=== PATIENT | female | born 1955 | race Caucasian/White ===

== ENCOUNTER 2019-08-07 05:42 | Inpatient (IN) | payer BC ==
[2019-08-07 07:05] VITALS: BMI 33.6
[2019-08-07] MEDS ORDERED: PROPOFOL 20 ML ONE (07:12)
[2019-08-07] MEDS ORDERED: ROCURONIUM BROMIDE 50 MG/5 ML SYRINGE ONE (07:12)
[2019-08-07] MEDS ORDERED: KETAMINE HCL 200 MG/20 ML VIAL ONE (07:12)
[2019-08-07] MEDS ORDERED: ONDANSETRON 4 MG/2 ML VIAL ONE (07:15)
[2019-08-07] MEDS ORDERED: SODIUM CHLORIDE 0.9% P/F 10 ML VIAL IJ ONE (07:15)
[2019-08-07] MEDS ORDERED: DEXAMETHASONE SOD PHOSPHATE 4 MG/1 ML VIAL ONE (07:15)
[2019-08-07] MEDS ORDERED: MAGNESIUM SULF 50% (8.12 MEQ/2 ML-1 GM VIAL) ONE (07:15)
[2019-08-07] MEDS ORDERED: KETOROLAC TROMETHAMINE 30 MG/1 ML VIAL ONE (07:15)
[2019-08-07] MEDS ORDERED: LIDOCAINE HCL/PF 2% SDV 5ML VIAL ONE ×2 (07:15→07:24)
[2019-08-07] MEDS ORDERED: ceFAZolin SODIUM 1 GM VIAL ONE ×2 (07:15→12:33)
[2019-08-07] MEDS ORDERED: EPINEPHrine/PF 1 MG/1 ML (1:1,000) AMPULE ONE (07:25)
[2019-08-07] MEDS ORDERED: BUPIVACAINE HCL/PF 0.5% (5 MG/ML) 30 ML VIAL IJ ONE (07:39)
[2019-08-07] MEDS ORDERED: MIDAZOLAM HCL 2 MG/2 ML SINGLE DOSE VIAL ONE (07:39)
[2019-08-07] MEDS ORDERED: BUPIVACAINE LIPOSOME/PF (EXPAREL) 266 MG/20 ML VIAL ONE ×2 (07:39→07:48)
[2019-08-07] MEDS ORDERED: BUPIVACAINE HCL/PF 2.5 MG/ML - 30 ML VIAL IJ ONE (07:49)
[2019-08-07] MEDS ORDERED: BACITRACIN 15 GM TUBE TOPICAL OINTMENT ONE (07:49)
[2019-08-07] MEDS ORDERED: BUPIVACAINE HCL 0.25% 125 MG/50 ML VIAL ONE (07:49)
[2019-08-07] MEDS ORDERED: HEPARIN NA (PORCINE) 5,000 UNITS/ML 1ML VIAL ONE (08:42)
[2019-08-07] MEDS ORDERED: METOPROLOL TARTRATE 5 MG/5 ML VIAL ONE (09:18)
[2019-08-07] MEDS: ACETAMINOPHEN 1000 MG/100 ML VIAL (NON FORMULARY) IVPB PRN (10:00)
[2019-08-07] MEDS ORDERED: EPHEDRINE SULFATE/0.9% NACL/PF 50 MG/10 ML SYRINGE NR ONE ×2 (10:16→11:40)
[2019-08-07] MEDS ORDERED: VECURONIUM BROMIDE 10 MG VIAL ONE (11:03)
[2019-08-07] MEDS ORDERED: NEOSTIGMINE METHYLSULFATE 0.5 MG/ML - 10 ML MDV ONE (14:59)
[2019-08-07] MEDS ORDERED: GLYCOPYRROLATE 0.2 MG/1 ML VIAL ONE (15:00)
--- NOTE | 2019-08-07 15:27 | OP ---
DATE OF OPERATION: 08/07/2019 PREOPERATIVE DIAGNOSIS: Complex, chronically incarcerated, large ventral incisional hernia. POSTOPERATIVE DIAGNOSIS: Complex, chronically incarcerated, large ventral incisional hernia. PROCEDURE: Open bilateral component separation, repair of complex, chronically incarcerated ventral incisional hernia, partial omentectomy, bilateral rectus sheath block (given by 1st wellness assistant). SURGEON: Joshua Knutson MD WORK FROM HOME: Kwan Hansen DO ANESTHESIA: Michelle Plummer MD (general). ESTIMATED BLOOD LOSS: Minimal. SPECIMEN: Portion of omentum. INDICATION FOR PROCEDURE: This is a 64-year-old female who has had multiple abdominal surgeries and now presented with a very large, chronically incarcerated, complex, ventral incisional hernia. She is here for operative repair since it has gotten larger and causing her discomfort. Please refer to my history and physical for complete details. DESCRIPTION OF PROCEDURE: Patient was identified and appropriately positioned on the operating room table. After placement of general anesthesia, the abdomen was then prepped and draped in the usual sterile fashion with ChloraPrep. At this point, Dr. Holland performed the exposure portion of the operation for his abdominoplasty. Please refer to his dictation. Once exposure was obtained, the defect clearly identified, and the hernia sac incised, and the abdomen was entered. Upon entering the abdomen, it was a slider and contained omentum. The omentum that was stuck to the sac was serially clamped, divided, and tied, and portion of the omentum with the sac was excised and handed off as specimen. There were adhesions of omentum and small bowel to the anterior abdominal wall. These adhesions were taken down with blunt dissection to free up the undersurface of the abdomen. The defect itself was between 9-10 cm in its widest dimension. Given the size of this defect, the patient clearly needed a component separation. The right rectus posterior rectus sheath was identified, divided with the cautery. The right posterior rectus space was then subsequently entered. Using blunt dissection, the rectus muscle itself was off the posterior sheath. Due to her previous surgery, there were some areas that were scarred, and in those sections, the rectus muscle was divided with the cautery as needed. Next, the perforating vessels were identified going out laterally, and just medial to the perforating vessels, the fascia of the transversus was divided with the cautery and the transversus off the junction of the rectus and obliques. This myofascial separation ensued approximately 5 inches above and below the defect. Superiorly, it was taken to the level of the costal margin. This blunt dissection was taken out and out toward the anterior iliac spine laterally. Once the myofascial separation was completed on the right side, a similar approach was used on the left side. On the left side, the posterior rectus space was entered by dividing the posterior rectus sheath with the cautery. The space was then subsequently developed with blunt dissection and in doing so again the muscle that was scarred from her previous surgery was divided as needed and the perforating vessels identified and preserved. The fascia just medial to the perforating vessels were then subsequently scored, and the transversus was off the obliques and rectus junction with this maneuver, and the myofascial separation ensued approximately 5 inches above and below the defect and superiorly was taken to the costal margin also on the left. The plane was developed out laterally toward the anterior iliac spine. Once the posterior rectus space was developed, the transversus was then reapproximated in the midline with a running 2-0 V-Lock suture. Once the posterior rectus space was closed, the rectus sheath itself was injected by the 1st wellness assistant using a total of 40 mL of Exparel with 4 mg of Decadron. This was done under direct vision on both sides, 20 mL each side. The defect measured, and due to the generosity of the defect and the space developed in the retrorectus location, a large 50 x 50 piece of Versatex with a 16 x 20 OviTex was used for the operative repair. The Versatex was cut to the appropriate size. The 2 pieces of mesh were sewn together in a hybrid fashion with interrupted 3-0 Vicryl sutures. The OviTex was laid on the transversus side, and the Versatex was directly behind the rectus muscle side. The mesh placed into the rectorectus location and then anchored with a multitude of AbsorbaTack anchors. The mesh was then irrigated. The operative field noted to be hemostatic. The fascia in the midline then reapproximated with a running No. 1 PDS suture. At the level of the umbilicus, the umbilicus was spared. At this point, Dr. Holland had returned to complete the abdominoplasty. I was asked to return to the operating room because during the completion of the abdominoplasty, Dr. Holland decided to remove the umbilicus, and in doing so, he encountered the sac at the level of the umbilicus. Once the umbilicus was removed, the fascia around where the umbilicus used to be was then reapproximated with interrupted No. 1 PDS suture. The subcutaneous space irrigated once again. The operative field noted to be hemostatic. At this point, the repair was completed. Please refer to Dr. Holland's dictation for completion of abdominoplasty and liposuction. Raj KOHLI [id number] cc: MD Dr. Chelsie Sanders MD
[2019-08-07] MEDS ORDERED: MORPHINE SULFATE 2 MG/ML VIAL IVPUSH PRN (15:31)
[2019-08-07] MEDS ORDERED: oxyCODONE HCL 5 MG TABLET PO PRN (15:31)
[2019-08-07] MEDS ORDERED: ONDANSETRON 4 MG/2 ML VIAL IVPB PRN (15:31)
[2019-08-07] MEDS ORDERED: ACETAMINOPHEN INJECTION 100 ML IVPB ONE (16:44)
--- NOTE | 2019-08-07 17:18 | OP ---
Operative Note - Note: Operative Date: 08/07/19 Pre-Operative Diagnosis: abdominal deformity Operation: abdominoplasty with liposuction Findings: above Post-Operative Diagnosis: Same as Pre-op Surgeon: Charlie Holland Anesthesia: General
--- NOTE | 2019-08-07 17:19 | PN ---
Progress Note (short form) - Note Progress Note: post op check: VSS AF JED thin and functioning, NV in tact
--- NOTE | 2019-08-07 18:30 | OP ---
DATE OF OPERATION: 08/07/2019 PROCEDURE: Abdominoplasty with liposuction to midepigastrium and flanks. ATTENDING SURGEON: Charlie Holland MD The procedure is performed in combination with a large ventral incisional hernia repair by Dr. Joshua Knutson. That portion of the procedure will be dictated by Joshua Knutson and his team. DESCRIPTION OF PROCEDURE: The patient is marked in the standing position in the holding area. She is awake and aware of incisions and resulting scars. She is counseled thoroughly on all risks, benefits, and alternatives to the procedure. It is discussed with the patient that she will likely lose the umbilicus as part of the procedure, which she understands and agrees to. The markings were reviewed with Dr. Knutson. Patient is then brought to the operating room. Placed in a supine position. She is positioned by surgical and anesthesia teams, 5000 units of subcutaneous heparin are given. The patient is given 2 g of Ancef. She is prepped and draped in a standard sterile fashion. Pacheco catheter is placed prior to the procedure. Pillow is placed below the knees. All proper positioning aids and pads are used. A time-out is called. Patient, procedure, site, sides are verified. At this point, an incision is made at the infrapannicular crease where dissection is then carried down to the level of the abdominal wall fascia. Dissection is carried along the abdominal wall fascia to the level of the umbilicus in the midline, which is preserved on a large fibrofatty stalk. Dissection is then continued cephalad to the costal margins bilaterally and xiphoid process in the midline. Hemostasis is meticulously achieved. All the perforating vessels that needed to be divided are carefully divided and either Bovie or suture ligated. The operation is then turned over to Dr. Knutson who along with Dr. Hansen performed the repair of the ventral incisional hernia. At the completion of this, I am called back into the operating room to complete the abdominoplasty. Initially, the viability of the umbilicus is access by trimming the edges of the skin with a 10-blade scalpel. No dermal bleeding is able to be seen in several locations. On account of this, it is determined that the umbilicus was not viable, which was the preoperative expectation. The umbilicus is then amputated at its base. Dr. Hansen is called back into the OR to repair the base defect with a series of interrupted No. 1 Prolene sutures on top of the existing mesh and repair. At the completion of this, hemostasis was meticulously achieved. A midline plication is then performed. It is explained by Dr. Hansen that the pre-existing repair and separation of components allowed for a plication on the inferior half of the abdomen, which explained the increased relative tension on the inferior half of the abdomen. A series of sutures is performed along the midline both in the upper and lower abdomen to create an even tension throughout the entire abdomen. This was done 1st with a series of buried No. 1 Prolene figure of eight sutures followed by a running, locking No. 1 Prolene suture with knots buried. With the plication, there is significant bunching and fullness of the upper abdominal tissue and skin requiring midepigastric liposuction and discontinuous undermining of the flaps over the costal margins. On account of this, the superior flap is then infiltrated with wetting solution as well as the bilateral flanks. A total of 1200 mL of wetting solution is infiltrated between all these areas, and 30 minutes is given for the effect of the wetting solution in order to allow for hemostasis. While this is being performed, the patient is brought to a slightly flexed position at 30 degrees where the abdominoplasty flap is transposed, and excess skin and fat are removed. Hemostasis is achieved. Excellent dermal bleeding is seen at the suprapubic skin distalmost portion of the flap. Discontinuous undermining is then laterally on the abdominoplasty flap with a ring forceps as well as an exploded tip cannula without suction. Liposuction is performed in the midepigastrium with a 4-mm cannula. Traditional liposuction is used. A total of 200 is aspirated. The flanks are then liposuctioned, and a total of 100 mL from either flank is aspirated. Once again, hemostasis is thoroughly achieved. Copious irrigation is performed. Closure is then performed over 3 size 10 flat J-P drains, which are brought out through 2 lateral incisions as well as a suprapubic incision that is made in an existing C section scar. Drains are secured with 2-0 silk drain suture. Closure is performed of Meron layer superficial fascial system with a series of buried, interrupted 2-0 Vicryl suture followed by a series of interrupted, buried, deep dermal 3-0 Monocryl suture followed by a running middermal 3-0 V-Lock suture 90 day Monocryl. The skin edges are then approximated with interrupted 5-0 nylon suture where necessary. All tissues appear viable. Drains were placed to bulb suction. Steri-Strips are applied. ABD gauze and an abdominal binder are applied. It should be noted as part of the midepigastric liposuction 2 inframammary stab wounds were made, 1 on either side. These are closed with interrupted 5-0 nylon suture. Patient is transferred to a hospital bed in a flexed position. Binder is applied. She is transferred to recovery without complication. CHARLIE HOLLAND M.D. [id number]
[2019-08-07] MEDS ORDERED: HYDROmorphone HCL 0.5 MG/0.5 ML SYRINGE ONE (18:37)
[2019-08-07] MEDS ORDERED: HYDROmorphone HCL CARPU-JECT 1 MG/1 ML DISP.SYRIN IVPB ONE (20:17)
[2019-08-07] MEDS ORDERED: HYDROmorphone HCL CARPU-JECT 1 MG/1 ML DISP.SYRIN IVPB PRN (20:21)
[2019-08-07] MEDS: CEFAZOLIN 1 GM/D5W 1 GM/50 ML BAG IVPB SCH (21:54)
[2019-08-07] MEDS: LACTATED RINGERS SOLUTION 1,000 ML IV SCH (22:31)
[2019-08-07] MEDS ORDERED: KETOROLAC TROMETHAMINE 30 MG/1 ML VIAL IVPUSH PRN (23:10)
[2019-08-08] MEDS: ACETAMINOPHEN 1000 MG/100 ML VIAL (NON FORMULARY) IVPB PRN ×3 (01:07→22:00)
[2019-08-08] MEDS: HYDROmorphone HCl 2 MG/ML VIAL IVPB PRN ×2 (02:00→06:08)
[2019-08-08] MEDS: CEFAZOLIN 1 GM/D5W 1 GM/50 ML BAG IVPB SCH (03:31)
[2019-08-08] MEDS: traMADol HCL 50 MG TABLET PO PRN (05:06)
[2019-08-08] MEDS: LEVOTHYROXINE NA 100 MCG TABLET (FP) PO SCH (06:10)
[2019-08-08] MEDS ORDERED: FAMOTIDINE 20 MG/50 ML IVPB 20 MG/50 ML MG IVPB ONE (08:35)
[2019-08-08] MEDS: HEPARIN NA (PORCINE) 5,000 UNITS/ML 1ML VIAL SQ SCH ×2 (08:48→10:22)
--- NOTE | 2019-08-08 08:48 | ED.PROV ---
Physicial Exam I saw and examined the patient. - Vital Signs Last Vital Signs Temp Pulse Resp BP Pulse Ox 98.4 F 61 18 107/51 L 95 08/08/19 06:23 08/08/19 06:23 08/08/19 06:23 08/08/19 06:23 08/07/19 23:00 - Physical Exam Reason for Response: 08/08/19 08:41 gen itching and swelling of hands since early am today no difficulty breathing or swallowing. no throat irritation. no wheezing. nl vitals. ent clear. chest clear. hx allergy morphine with similar sxs plan hold Dilaudid and Ancef as possible allergens Benadryl and pepcid now contact dr barron for further theraputic options may consider iv acetamenaphen or fentanyl, though cross reaction with morphine likely, and different antibiotic close obs
[2019-08-08] MEDS ORDERED: LACTATED RINGERS SOLUTION 1,000 ML/1,000 ML INFUS.BAG IV STA (09:41)
--- NOTE | 2019-08-08 09:49 | PN ---
Progress Note (short form) - Note Progress Note: POD 1 Patient VSS AF OOB to chair with me this morning No collections or infections All tissues viable JED's thin serosanguinous fluid and all with appropriate output UOP adequate, [place] d/c'd CLD tolerated Patient with significant anxiety- ativan PRN c/o "burning to chest skin" nurses say there was a rash which has resolved with benedryl and pepcid abx changed to levaquin increase pain meds with toradol, IV tylenol, and dilaudid Continue encourage IS, ambulation.
[2019-08-08] MEDS ORDERED: [UNRECOGNIZED DRUG - MIXTURE] PO SCH ×2 (10:00→12:30)
[2019-08-08] MEDS ORDERED: PATIENT'S OWN MEDICATION (NON-FORMULARY) (Losartan/Hydrochlorothiazide [Losartan-Hctz 100- PO SCH (10:00)
[2019-08-08] MEDS: HYDROmorphone HCl 2 MG/ML VIAL IVPUSH PRN ×3 (10:15→20:04)
[2019-08-08] MEDS: CYANOCOBALAMIN 1,000 MCG TABLET (FP) PO SCH ×2 (10:21→12:27)
[2019-08-08] MEDS: HYDROCHLOROTHIAZIDE 25 MG TABLET (FP) PO SCH ×2 (10:22→12:27)
[2019-08-08] MEDS: ASCORBIC ACID 500 MG TABLET (FP) PO SCH ×2 (10:22→12:28)
[2019-08-08] MEDS: LOSARTAN POTASSIUM 50 MG TABLET (FP) PO SCH ×2 (10:22→12:27)
[2019-08-08] MEDS: CHOLECALCIFEROL (VIT D3) 1,000 UNIT (25 MCG) TABLET PO SCH ×2 (10:23→12:32)
[2019-08-08] MEDS: LORazepam 2 MG/ML SDV VIAL IVPUSH PRN ×2 (10:25→18:51)
[2019-08-08] MEDS: DOCUSATE SODIUM 100 MG CAPSULE (FP) PO SCH ×3 (10:25→21:17)
[2019-08-08] MEDS: LACTATED RINGERS SOLUTION 1,000 ML IV SCH ×2 (16:15→18:19)
[2019-08-08 16:54] LABS: HEMATOCRIT 31.4 % (32.4-45.2); HEMOGLOBIN 10.9 GM/dl (10.7-15.3); MCH 32.3 pg (25.7-33.7); MCHC 34.9 g/dl (32.0-36.0); MEAN CELL VOLUME 92.4 fl (80-96); MEAN PLT VOLUME 8.8 fl (7.5-11.1); PLATELET COUNT 173 K/MM3 (134-434); RBC 3.39 M/mm3 (3.60-5.2); RDW 12.6 % (11.6-15.6); WHITE BLOOD COUNT 17.7 K/mm3 (4.0-10.8)
[2019-08-08] MEDS ORDERED: SODIUM CHLORIDE 1,000 ML IV ONE (18:00)
[2019-08-08 18:38] LABS: PLATELET ESTIMATE ADEQUATE
--- NOTE | 2019-08-08 20:42 | PN ---
Progress Note (short form) - Note Progress Note: Called to see patient on account of high JED drainage Patient is slightly tachycardic though normotensive and highly anxious Color is pink JED output is very thin serosanguinous fluid, abdominal exam is soft with clearly no hematoma HCT is 31.4 24 hours post-op Plan for continued IVF, will restart CLD and OOB Hold sq heparin until after next cbc draw in AM
[2019-08-09] MEDS: HYDROmorphone HCl 2 MG/ML VIAL IVPUSH PRN ×4 (00:09→21:50)
[2019-08-09] MEDS: traMADol HCL 50 MG TABLET PO PRN ×2 (02:05→16:21)
[2019-08-09] MEDS: LORazepam 2 MG/ML SDV VIAL IVPUSH PRN (04:11)
[2019-08-09] MEDS: LEVOTHYROXINE NA 100 MCG TABLET (FP) PO SCH (06:19)
[2019-08-09 08:04] LABS: HEMATOCRIT 28.9 % (32.4-45.2); MCH 32.1 pg (25.7-33.7); MCHC 34.7 g/dl (32.0-36.0); MEAN CELL VOLUME 92.5 fl (80-96); MEAN PLT VOLUME 9.2 fl (7.5-11.1); PLATELET COUNT 211 K/MM3 (134-434); RBC 3.13 M/mm3 (3.60-5.2); RDW 12.5 % (11.6-15.6); WHITE BLOOD COUNT 19.7 K/mm3 (4.0-10.8)
[2019-08-09] MEDS: ASCORBIC ACID 500 MG TABLET (FP) PO SCH (10:12)
[2019-08-09] MEDS: CYANOCOBALAMIN 1,000 MCG TABLET (FP) PO SCH (10:13)
[2019-08-09] MEDS: CHOLECALCIFEROL (VIT D3) 1,000 UNIT (25 MCG) TABLET PO SCH (10:13)
[2019-08-09] MEDS: DOCUSATE SODIUM 100 MG CAPSULE (FP) PO SCH ×2 (10:13→21:22)
[2019-08-09] MEDS: LOSARTAN POTASSIUM 50 MG TABLET (FP) PO SCH (11:28)
[2019-08-09] MEDS: HYDROCHLOROTHIAZIDE 25 MG TABLET (FP) PO SCH (11:28)
[2019-08-09] MEDS ORDERED: SODIUM CHLORIDE 0.45% 1,000 ML IV SCH (11:45)
--- NOTE | 2019-08-09 13:21 | PN ---
Progress Note (short form) - Note Progress Note: general surgery pt seen and examined. in chair. using 1000 on spirometer. mild tachycardia. on O2. dvt study negative. tolerating minimal clear liquids. cxr with atelectasis afebrile abd soft, incision clean with serous drainage, love serous, mild edema, minimal tenderness A/P Pod#1- tachycardia with O2 requirement. likely from atelectasis. will ambulate and improve incentive spirometer. after 1 hour will get abg. if suspicious will get CTA to r/o PE. would like to avoid constrast load if low suspicion. dvt negative. pt states she feels well will restart sq hep as no active bleed. hgb stable leukocytosis likely reactive. should improve tomorrow. doubt infection. doubt PE. on prophylactic levaquin. Selected Entries 08/09/19 08:44 Pulse Rate 109 H Laboratory Tests 08/09/19 07:19 WBC 19.7 H Hgb 10.0 L
[2019-08-09] MEDS: HEPARIN NA (PORCINE) 5,000 UNITS/ML 1ML VIAL SQ SCH ×2 (13:43→21:28)
[2019-08-09] MEDS: PROMETHAZINE HCL 25 MG/1 ML VIAL IVPB PRN (13:44)
[2019-08-09] MEDS: ONDANSETRON *ODT* 4 MG TABLET SL PRN ×2 (14:00→23:58)
[2019-08-09 15:56] LABS: ARTERIAL BLD GAS O2 SATURATION 97.9 % (95-98); ARTERIAL BLOOD GAS pH 7.48 (7.35-7.45)
[2019-08-09] MEDS: LACTATED RINGERS SOLUTION 1,000 ML IV SCH (21:44)
[2019-08-10] MEDS: ACETAMINOPHEN 1000 MG/100 ML VIAL (NON FORMULARY) IVPB PRN (01:28)
[2019-08-10] MEDS ORDERED: FAMOTIDINE 10 MG TABLET PO SCH ×2 (02:00→10:00)
[2019-08-10] MEDS: HYDROmorphone HCl 2 MG/ML VIAL IVPUSH PRN ×3 (04:35→17:35)
[2019-08-10] MEDS: LEVOTHYROXINE NA 100 MCG TABLET (FP) PO SCH (06:01)
[2019-08-10] MEDS ORDERED: ONDANSETRON 8 MG TABLET (FP) PO PRN (08:40)
--- NOTE | 2019-08-10 09:20 | PN ---
Progress Note (short form) - Note Progress Note: POD 3 VSS AF Much improved over last 2 days All drainage is thin serous fluid Dressings are changed Patient is ambulating and improving with incentive spirometer. Her SaO2 ranges b/w high 80's to low 90's but improves when walking and using IS duplex neg for DVT. CXR sig only for bilateral atelectasis Pain is well controlled on PO Plan is for ambulation today with weaning off supplemental O2. If this is not successful will order CTA tomorrow, otherwise plan for d/c home tomorrow.
[2019-08-10] MEDS: DOCUSATE SODIUM 100 MG CAPSULE (FP) PO SCH ×2 (10:43→21:11)
[2019-08-10] MEDS: LOSARTAN POTASSIUM 50 MG TABLET (FP) PO SCH (10:43)
[2019-08-10] MEDS: HEPARIN NA (PORCINE) 5,000 UNITS/ML 1ML VIAL SQ SCH ×2 (10:43→21:12)
[2019-08-10] MEDS: HYDROCHLOROTHIAZIDE 25 MG TABLET (FP) PO SCH (10:43)
[2019-08-10] MEDS: PROMETHAZINE HCL 25 MG/1 ML VIAL IVPB PRN ×2 (10:44→20:28)
[2019-08-10] MEDS: CYANOCOBALAMIN 1,000 MCG TABLET (FP) PO SCH (10:44)
[2019-08-10] MEDS: CHOLECALCIFEROL (VIT D3) 1,000 UNIT (25 MCG) TABLET PO SCH (10:44)
[2019-08-10] MEDS: ASCORBIC ACID 500 MG TABLET (FP) PO SCH (10:44)
[2019-08-10] MEDS: ONDANSETRON *ODT* 4 MG TABLET SL PRN ×2 (10:45→17:35)
[2019-08-10] MEDS: FAMOTIDINE 10 MG TABLET PO SCH ×2 (13:57→21:11)
[2019-08-10] MEDS: oxyCODONE HCL 5 MG TABLET PO PRN (20:20)
[2019-08-11] MEDS: HYDROmorphone HCl 2 MG/ML VIAL IVPUSH PRN (00:42)
[2019-08-11] MEDS: oxyCODONE HCL 5 MG TABLET PO PRN (03:58)
[2019-08-11] MEDS: LORazepam 2 MG/ML SDV VIAL IVPUSH PRN (05:07)
[2019-08-11] MEDS: LEVOTHYROXINE NA 100 MCG TABLET (FP) PO SCH (06:24)
[2019-08-11] MEDS: HEPARIN NA (PORCINE) 5,000 UNITS/ML 1ML VIAL SQ SCH ×2 (10:07→21:14)
[2019-08-11] MEDS: CYANOCOBALAMIN 1,000 MCG TABLET (FP) PO SCH (10:07)
[2019-08-11] MEDS: HYDROCHLOROTHIAZIDE 25 MG TABLET (FP) PO SCH (10:07)
[2019-08-11] MEDS: LOSARTAN POTASSIUM 50 MG TABLET (FP) PO SCH (10:07)
[2019-08-11] MEDS: DOCUSATE SODIUM 100 MG CAPSULE (FP) PO SCH ×2 (10:07→21:14)
[2019-08-11] MEDS: CHOLECALCIFEROL (VIT D3) 1,000 UNIT (25 MCG) TABLET PO SCH (10:08)
[2019-08-11] MEDS: ASCORBIC ACID 500 MG TABLET (FP) PO SCH (10:08)
[2019-08-11] MEDS: FAMOTIDINE 10 MG TABLET PO SCH ×2 (10:32→21:14)
--- NOTE | 2019-08-11 11:28 | PN ---
Progress Note (short form) - Note Progress Note: POD 5. Patient is still intermittently requiring supplemental oxygen. Plan is for CTA r/o PE for which I still have low suspicion. continue to encourage aggressive ambulation and incentive spirometer.
[2019-08-11] MEDS: ACETAMINOPHEN 1000 MG/100 ML VIAL (NON FORMULARY) IVPB PRN ×2 (12:18→21:15)
[2019-08-12] MEDS: oxyCODONE HCL 5 MG TABLET PO PRN ×5 (00:52→21:03)
[2019-08-12] MEDS: LEVOTHYROXINE NA 100 MCG TABLET (FP) PO SCH (06:14)
[2019-08-12] MEDS ORDERED: traMADol HCL 50 MG TABLET PO PRN (09:35)
--- NOTE | 2019-08-12 09:40 | PN ---
Progress Note (short form) - Note Progress Note: POD 6 VSS AF CTA negative of PE, reviewed with radiologist this morning Patient remains in pain and with poor inspiratory effort. bilateral atelectasis on chest CT Patient cannot leave on account of still requiring supplemental O2 and pain control Plan is for weaning from O2 with Chest PT and respiratory consult today Dressings changed. No collections, All tissues viable w/o infection. JED's thin and functioning. Good UOP. Patient ambulatory but requires encouragement. Plan for d/c home tomorrow.
[2019-08-12] MEDS: DOCUSATE SODIUM 100 MG CAPSULE (FP) PO SCH ×2 (10:21→21:03)
[2019-08-12] MEDS: LOSARTAN POTASSIUM 50 MG TABLET (FP) PO SCH (10:21)
[2019-08-12] MEDS: HYDROCHLOROTHIAZIDE 25 MG TABLET (FP) PO SCH (10:21)
[2019-08-12] MEDS: HEPARIN NA (PORCINE) 5,000 UNITS/ML 1ML VIAL SQ SCH ×2 (10:21→21:03)
[2019-08-12] MEDS: CHOLECALCIFEROL (VIT D3) 1,000 UNIT (25 MCG) TABLET PO SCH (10:22)
[2019-08-12] MEDS: CYANOCOBALAMIN 1,000 MCG TABLET (FP) PO SCH (10:22)
[2019-08-12] MEDS: ASCORBIC ACID 500 MG TABLET (FP) PO SCH (10:22)
[2019-08-12] MEDS: ONDANSETRON *ODT* 4 MG TABLET SL PRN (10:23)
[2019-08-12] MEDS: FAMOTIDINE 10 MG TABLET PO SCH ×2 (10:23→21:03)
[2019-08-12] MEDS: KETOROLAC TROMETHAMINE 30 MG/1 ML VIAL IVPUSH PRN (12:33)
--- NOTE | 2019-08-12 16:33 | PATH ---
Surgical Pathology Report Patient Name: RAJEEV EATON Med. Rec. #: [id number] /Age/Gender: 1955 (Age: 64) / F Account: [id number] Location: [facility] Taken: 08/07/2019 Received: 08/07/2019 Reported: 08/12/2019 Physicians: Joshua Knutson Specimen(s) Received A: PORTION OF OMENTUM B: ABDOMINAL SKIN & TISSUE Clinical History Bilateral component separation Final Diagnosis A. PORTION OF OMENTUM, HERNIA REPAIR AND OMENTECTOMY: BENIGN OMENTAL ADIPOSE TISSUE AND HERNIA SAC. B. ABDOMINAL SKIN AND TISSUE, ABDOMINOPLASTY: UNREMARKABLE SKIN AND ADIPOSE TISSUE. MACROSCOPIC DIAGNOSIS. Electronically Signed Chiquis Zavaleta M.D. Gross Description A. Received in formalin labeled "portion of omentum," is a 6.5 x 6.0 x 1.8 cm aggregate of marroquin-yellow portions of adipose tissue with attached fibromembranous tissue. A benefits representative section is submitted in one cassette. B. Received in formalin, in two separate containers each labeled "abdominal skin and tissue," is a 1838 g, 38.0 x 26.0 x 4.0 cm aggregate of multiple unoriented portions of marroquin, unremarkable skin with attached underlying soft tissue. Sectioning reveals homogeneous yellow, lobulated adipose tissue. No lesions are identified. No sections are submitted, gross only. 08/09/2019 saudi08/09/2019
--- NOTE | 2019-08-12 17:40 | PN ---
Progress Note (short form) - Note Progress Note: general surgery pt seen and examined. in chair. walked today several timea. using 1750 on spirometer. off O2. dvt study negative. CTA negative. tolerating diet. afebrile abd soft, incision clean with serous drainage, love serous, mild edema, minimal tenderness A/P Pod#5- slowly improving. likely discharge in am.
[2019-08-13] MEDS: LEVOTHYROXINE NA 100 MCG TABLET (FP) PO SCH (06:45)
--- NOTE | 2019-08-13 07:28 | PN ---
Progress Note (short form) - Note Progress Note: Patient substantially improved with better ambulation and deeper breathing. Still, however desaturating to 80 at night while sleeping. Possibly a baseline issue. Will have evaluated by pulmonary prior to d/c. o/w vss af all tissues healing well and recovering well by all other standards.
--- NOTE | 2019-08-13 08:13 | CONSULT ---
Consultation: REQUESTING PROVIDER: CONSULT REQUEST: We have been asked to medically evaluate this patient on post- op day #6 for reported episode of hypoxia at night when sleeping. HISTORY OF PRESENT ILLNESS: 64 year-old female with a PMH significant for HTN, HLD, hypothyroidism, s/p ex lap, THBSO, removal of a pelvic mass and radical dissection and removal and debulking of a pelvic tumor (03/2018). She subsequently developed a chronically incarcerated, complex ventral incisional hernia. She underwent bilateral component separation for complex ventral hernia repair with mesh, and abdominoplasty on 08/07/19. REVIEW OF SYSTEMS: CONSTITUTIONAL: +weakness Absent: fever, chills, diaphoresis, malaise, loss of appetite, weight change HEENT: Absent: rhinorrhea, nasal congestion, throat pain, throat swelling, difficulty swallowing, mouth swelling, ear pain, eye pain, visual changes CARDIOVASCULAR: Absent: chest pain, syncope, palpitations, irregular heart rate, lightheadedness , peripheral edema RESPIRATORY: Absent: cough, shortness of breath, dyspnea with exertion, orthopnea, wheezing, stridor, hemoptysis GASTROINTESTINAL: Absent: abdominal pain, abdominal distension, nausea, vomiting, diarrhea, constipation, melena, hematochezia GENITOURINARY: Absent: dysuria, frequency, urgency, hesitancy, hematuria, flank pain, genital pain MUSCULOSKELETAL: Absent: myalgia, arthralgia, joint swelling, back pain, neck pain SKIN: Absent: rash, itching, pallor HEMATOLOGIC/IMMUNOLOGIC: Absent: easy bleeding, easy bruising, lymphadenopathy, frequent infections ENDOCRINE: Absent: unexplained weight gain, unexplained weight loss, heat intolerance, cold intolerance NEUROLOGIC: Absent: headache, focal weakness or paresthesias, dizziness, unsteady gait, seizure, mental status changes, bladder or bowel incontinence PSYCHIATRIC: Absent: anxiety, depression, suicidal or homicidal ideation, hallucinations. PHYSICAL EXAMINATION Vital Signs - 24 hr 08/12/19 08/12/19 08/12/19 08:31 10:00 13:55 Temperature 98.2 F 99.0 F Pulse Rate 80 84 Respiratory 20 18 Rate Blood Pressure 136/81 98/55 L O2 Sat by Pulse 98 98 Oximetry (%) 08/12/19 08/12/19 08/12/19 18:00 20:46 22:00 Temperature 98.6 F 98.5 F Pulse Rate 89 92 H Respiratory 16 16 18 Rate Blood Pressure 93/55 L 104/59 L O2 Sat by Pulse 97 97 98 Oximetry (%) 08/13/19 08/13/19 06:00 08:06 Temperature 97.9 F Pulse Rate 84 Respiratory 18 18 Rate Blood Pressure 98/57 L O2 Sat by Pulse 94 L 91 L Oximetry (%) GENERAL: Awake, alert, and fully oriented, in no acute distress. HEAD: Normal with no signs of trauma. LUNGS: Breath sounds equal, clear to auscultation bilaterally. No wheezes, and no crackles. No accessory muscle use. HEART: Regular rate and rhythm, normal S1 and S2 ABDOMEN: Soft, incision edges well-approximated, serous drainage, JED drain with serous drainage, mild tenderness UPPER EXTREMITIES: 2+ pulses, warm, well-perfused. No cyanosis. No clubbing. Cap refill <2 seconds. No peripheral edema. LOWER EXTREMITIES: 2+ pulses, warm, well-perfused. No calf tenderness. No peripheral edema. NEUROLOGICAL: Cranial nerves II-XII intact. Normal speech. Active Medications Generic Name Dose Route Start Last Admin Trade Name Freq PRN Reason Stop Dose Admin Acetaminophen 650 mg 08/13/19 08:11 Tylenol - PO Q6H PRN PAIN LEVEL 1-5 Ascorbic Acid 1,000 mg 08/08/19 10:00 08/12/19 10:22 Vitamin C - PO Not Given DAILY [facility] Cholecalciferol 1,000 unit 08/08/19 10:00 08/12/19 10:22 Vitamin D3 - PO Not Given DAILY [facility] Cyanocobalamin 3,000 mcg 08/08/19 10:00 08/12/19 10:22 Vitamin B12 - PO Not Given DAILY [facility] Docusate Sodium 100 mg 08/08/19 10:00 08/12/19 21:03 Colace - PO 100 mg BID MIRIAM Administration Famotidine 10 mg 08/10/19 14:00 08/12/19 21:03 Acid Almond Pan Finisher PO 10 mg BID MIRIAM Administration Heparin Sodium (Porcine) 5,000 unit 08/09/19 13:13 08/12/19 21:03 Heparin - SQ 5,000 unit BID MIRIAM Administration Hydrochlorothiazide 25 mg 08/08/19 10:00 08/12/19 10:21 Hctz - PO 25 mg DAILY MIRIAM Administration Ketorolac Tromethamine 30 mg 08/12/19 09:35 08/12/19 12:33 Toradol Injection - IVPUSH 08/17/19 09:34 30 mg Q6H PRN Administration PAIN LEVEL 4 - 6 Levofloxacin 500 mg 08/09/19 16:30 08/13/19 06:45 Levaquin - PO 500 mg DAILY@0600 MIRIAM Administration Levothyroxine Sodium 100 mcg 08/08/19 07:00 08/13/19 06:45 Synthroid - PO 100 mcg ACBK MIRIAM Administration Losartan Potassium 100 mg 08/08/19 10:00 08/12/19 10:21 Cozaar - PO 100 mg DAILY MIRIAM Administration Non-Formulary Medication 100 mg 08/08/19 12:30 Chlorophyllin/[place] [Chlorophyll 20 Mg Tablet] PO DAILY MIRIAM Ondansetron HCl 8 mg 08/10/19 08:40 Zofran - PO Q8H PRN NAUSEA AND/OR VOMITING ASSESSMENT/PLAN: 64 year-old female with a PMH significant for HTN, HLD, hypothyroidism, s/p complex ventral hernia repair with mesh, and abdominoplasty on 08/07/19. r/o hypoxia --staff reports episodes of oxygen desaturation last night; evening nursing account supervisor advises patient was observed last night to frequently remove pulse oximeter despite education --pre-post testing this morning: walked 260 feet with sats in 90s on room air --atelectasis seen on CT imaging --stop opioids, stop IV fluids --continue incentive spirometry q1h, chest PT BID --continuous pulse oximetry monitoring --tonight spot pulse ox checks q2h --pulmonary also following Hypokalemia --K 2.7, replete Hypertension Hyperlipidemia Hypothyroidism Dispo: We will continue to follow the patient. Thank you for this consultative opportunity.
[2019-08-13 09:07] LABS: BASO % 0.4 % (0-2.0); EOS % 1.4 % (0-4.5); HEMATOCRIT 25.2 % (32.4-45.2); HEMOGLOBIN 8.6 GM/dl (10.7-15.3); LYMPH % 13.7 % (8-40); MCH 31.3 pg (25.7-33.7); MEAN PLT VOLUME 7.3 fl (7.5-11.1); MONO % 10.6 % (3.8-10.2); NEUT % 73.9 % (42.8-82.8); PLATELET COUNT 228 K/MM3 (134-434); RBC 2.74 M/mm3 (3.60-5.2); RDW 12.8 % (11.6-15.6); WHITE BLOOD COUNT 9.2 K/mm3 (4.0-10.8)
[2019-08-13 09:20] LABS: ALBUMIN 2.5 g/dl (3.4-5.0); BILIRUBIN,TOTAL 0.6 mg/dl (0.2-1); CALCIUM 7.6 mg/dl (8.5-10); MAGNESIUM 1.9 mg/dL (1.8-2.4); TOT PROT 5.4 g/dl (6.4-8.2)
[2019-08-13 09:23] LABS: POTASSIUM 2.7 mmol/L (3.5-5.1)
[2019-08-13] MEDS ORDERED: PT OWN MED DRAWER 7, Y5N ONE ×2 (09:35→21:44)
[2019-08-13] MEDS: POTASSIUM CHLORIDE TABS 20 MEQ TABLET.ER (FP) PO SCH ×3 (09:40→21:42)
[2019-08-13] MEDS: ASCORBIC ACID 500 MG TABLET (FP) PO SCH ×2 (09:50→10:06)
[2019-08-13] MEDS: CHOLECALCIFEROL (VIT D3) 1,000 UNIT (25 MCG) TABLET PO SCH ×2 (09:50→10:06)
[2019-08-13] MEDS: FAMOTIDINE 10 MG TABLET PO SCH ×2 (09:50→21:44)
[2019-08-13] MEDS: CYANOCOBALAMIN 1,000 MCG TABLET (FP) PO SCH ×2 (09:50→10:06)
[2019-08-13] MEDS: LOSARTAN POTASSIUM 50 MG TABLET (FP) PO SCH ×2 (09:50→10:06)
[2019-08-13] MEDS: HYDROCHLOROTHIAZIDE 25 MG TABLET (FP) PO SCH (09:51)
[2019-08-13] MEDS: DOCUSATE SODIUM 100 MG CAPSULE (FP) PO SCH ×3 (09:51→21:42)
[2019-08-13] MEDS: HEPARIN NA (PORCINE) 5,000 UNITS/ML 1ML VIAL SQ SCH ×2 (09:51→21:42)
[2019-08-13] MEDS ORDERED: ONDANSETRON *ODT* 4 MG TABLET SL PRN ×2 (10:00→16:16)
--- NOTE | 2019-08-13 10:12 | PN ---
Progress Note (short form) - Note Progress Note: PULMONARY CONSULTATION DICTATED 08/13/19 IMP HYPOXEMIA SECONDARY TO BILATERAL LOWER LOBE ATELECTASIS S/P LAP WITH REPAIR CHRONIC INCARCERATED INCISIONAL VENTRAL HERNIA, PARTIAL OMENTECTOMY,PARTIAL RECTAL SHEATH BLOCK, ABDOMINOPLASTY WITH LIPOSUCTION HTN HYPOTHYROID ? CHRISTIANO ANEMIA HYPONATREMIA/HYPOKALEMIA PLAN INCENTIVE SPIROMETRY NASAL O2 INHALED BRONCHODILATORS MONITOR NOCTURNAL O2 SAT MONITOR LYTES,MONITOR H+H REPLETE K DR MAXWELL Problem List - Problems (1) Hypoxemia Code(s): R09.02 - HYPOXEMIA (2) Atelectasis Code(s): J98.11 - ATELECTASIS (4) HTN (hypertension) Code(s): I10 - ESSENTIAL (PRIMARY) HYPERTENSION (5) Hypothyroid Code(s): E03.9 - HYPOTHYROIDISM, UNSPECIFIED
--- NOTE | 2019-08-13 10:37 | PN ---
Progress Note (short form) - Note Progress Note: general surgery pt remains hypoxic at night. pulmonary eval appreciated and may require home O2 based on todays improvement. tolerating diet. ambulating abd soft, incision clean with serous drainage, love serous, mild edema, minimal tenderness Laboratory Tests 08/13/19 08/13/19 09:01 09:01 WBC 9.2 Sodium 131 L Potassium 2.7 L* Chloride 95 L A/P Pod#6- slowly improving. hold discharge. replace roberto
[2019-08-13] MEDS: ACETAMINOPHEN 325 MG TABLET (FP) PO PRN ×2 (13:21→22:56)
--- NOTE | 2019-08-13 16:16 | CONS ---
PULMONARY CONSULTATION DATE OF CONSULTATION: 08/13/2019 REFERRING PHYSICIAN: Charlie Holland MD HISTORY OF PRESENT ILLNESS: Patient is a 64-year-old, female with a past medical history of hypertension, hypothyroidism, remote history of smoking greater than 30 years ago, admitted to [facility] on August 08 for repair of an incarcerated incisional hernia and abdominoplasty. Patient underwent a laparatomy with repair of chronic incarcerated incisional ventral hernia, partial rectal sheath block, and abdominoplasty with liposuction on August 07. Postop course was remarkable due to pain, abdominal discomfort, as well as episodes of hypoxemia. She underwent a vascular study on August 09 which revealed no evidence of DVT. She also underwent a CTA of the chest on August 11 which revealed bibasilar consolidations consistent with atelectasis, but no evidence of pulmonary emboli. Patient was placed on supplemental O2. Last night, she was noted to have O2 saturations around 80 on room air. She denies any history of COPD or asthma. She does complain of shortness of breath the past couple days and some weakness. She denies any chest pain or palpitations. Denies any cough or hemoptysis. As stated before, she has a history of smoking a pack a day and quit greater than 30 years ago. There is no history of occupational exposures. Denies any history of DVT or PE in the past. Patient denies any excessive daytime sleepiness, witnessed apneic episodes, and excessive snoring. PAST MEDICAL HISTORY: Again, as above. REVIEW OF SYSTEMS: Positive weakness. Positive mild shortness of breath with exertion. No chest pain. No palpitations. Positive mild abdominal discomfort. CURRENT MEDICATIONS: Include Zofran, Tylenol, Cozaar, Levaquin, heparin subcutaneous, Colace, Toradol, famotidine, K-Dur, hydrochlorothiazide, Synthroid , vitamin B12, and vitamin D3. PHYSICAL EXAMINATION: General: The patient is a well-developed, well-nourished female, awake, alert, in no acute distress. Vital Signs: She is afebrile, blood pressure is 98/54, respiratory rate is 19, O2 saturation is 100% on 2 L, 93% on room air. HEENT: Exam is normocephalic, atraumatic. Neck: Supple without adenopathy. Heart: Regular S1 and S2. Chest: Clear. Abdomen: Soft. Bowel sounds are present. Extremities: Bilateral lower extremity edema positive 2+. LABORATORIES: WBC is 9.2, hemoglobin 8.6, hematocrit 25.5 with a platelet count of 228,000. PTT is 31. Blood gas: 7.48, PCO2 of 36, a PO2 of 95, bicarbonate of 26, and saturating 97.9 on 4 L nasal cannula. Chemistries: Potassium is 2.7, sodium is 131, AST is 42, ALT is 65. IMAGING: Chest CTA as noted earlier. IMPRESSION: 1. Hypoxemic. Postoperative. Likely secondary to bilateral lower lobe atelectasis. 2. Status post laparoscopic repair of chronic incarcerated incisional ventral hernia, and partial rectal sheath block, abdominoplasty with liposuction. 3. Hypertension. 4. Hypothyroidism. 5. Rule out questionable sleep apnea. 6. Anemia. 7. Hyponatremia. 8. Hypokalemia. PLAN: Encourage incentive spirometer. Ambulate as tolerated. Nasal O2. Inhaled bronchodilators. Monitor nocturnal O2 saturation. Monitor electrolytes. Monitor hemoglobin and hematocrit. Replete potassium. ANNETTE MAXWELL M.D. UBALDO/[id number] MTDD
[2019-08-13] MEDS: ALBUTEROL SO4 2.5/IPRATROPIUM 0.5 INH SOL 3 ML VIAL.NEB. NEB SCH (21:41)
[2019-08-14] MEDS: LEVOTHYROXINE NA 100 MCG TABLET (FP) PO SCH (06:16)
[2019-08-14 06:56] VITALS: BP 110/44; TEMP 98.1
[2019-08-14 08:03] LABS: INR 1.25 (0.82-1.09); PROTHROMBIN TIME (PATIENT) 13.9 SEC (10.2-13.0)
[2019-08-14 08:05] LABS: BASO % 0.3 % (0-2.0); EOS % 1.5 % (0-4.5); HEMATOCRIT 24.5 % (32.4-45.2); HEMOGLOBIN 8.4 GM/dl (10.7-15.3); MCH 31.5 pg (25.7-33.7); MCHC 34.2 g/dl (32.0-36.0); MEAN CELL VOLUME 92.2 fl (80-96); MEAN PLT VOLUME 7.8 fl (7.5-11.1); MONO % 10.1 % (3.8-10.2); NEUT % 75.1 % (42.8-82.8); PLATELET COUNT 207 K/MM3 (134-434); RBC 2.66 M/mm3 (3.60-5.2); RDW 12.6 % (11.6-15.6); WHITE BLOOD COUNT 8.3 K/mm3 (4.0-10.8)
[2019-08-14 08:15] LABS: ALBUMIN 2.5 g/dl (3.4-5.0); BILIRUBIN,TOTAL 0.5 mg/dl (0.2-1); CALCIUM 7.8 mg/dl (8.5-10); CREATININE 0.8 mg/dl (0.55-1.3); MAGNESIUM 1.8 mg/dL (1.8-2.4); TOT PROT 5.1 g/dl (6.4-8.2)
--- NOTE | 2019-08-14 08:46 | PN ---
Physical Exam: SUBJECTIVE: Patient seen and examined OBJECTIVE: Vital Signs Period Temp Pulse Resp BP Sys/[place] Pulse Ox Last 24 Hr 97.9 F-99.1 F 76-85 17-20 95-114/44-62 90-100 GENERAL: The patient is awake, alert, and fully oriented, in no acute distress. HEAD: Normal with no signs of trauma. EYES: PERRL, extraocular movements intact, sclera anicteric, conjunctiva clear. No ptosis. ENT: Ears normal, nares patent, oropharynx clear without exudates, moist mucous membranes. NECK: Trachea midline, full range of motion, supple. LUNGS: Breath sounds equal, clear to auscultation bilaterally, no wheezes, no crackles, no accessory muscle use. HEART: Regular rate and rhythm, S1, S2 without murmur, rub or gallop. ABDOMEN: Soft, nontender, nondistended, normoactive bowel sounds, no guarding, no rebound, no hepatosplenomegaly, no masses. EXTREMITIES: 2+ pulses, warm, well-perfused, no edema. NEUROLOGICAL: Cranial nerves II through XII grossly intact. Normal speech, gait not observed. PSYCH: Normal mood, normal affect. SKIN: Warm, dry, normal turgor, no rashes or lesions noted Laboratory Results - last 24 hr 08/13/19 08/13/19 08/13/19 08:50 09:01 09:01 WBC 9.2 RBC 2.74 L Hgb 8.6 L Hct 25.2 L MCV 92.0 MCH 31.3 MCHC 34.0 RDW 12.8 Plt Count 228 MPV 7.3 L Absolute Neuts (auto) 6.8 Neutrophils % 73.9 Lymphocytes % 13.7 Monocytes % 10.6 H Eosinophils % 1.4 Basophils % 0.4 PT with INR INR PTT (Actin FS) 31.7 Sodium Potassium Chloride Carbon Dioxide Anion Gap BUN Creatinine Est GFR (CKD-EPI)AfAm Est GFR (CKD-EPI)NonAf Random Glucose Lactic Acid 1.8 Calcium Magnesium Total Bilirubin AST ALT Alkaline Phosphatase Total Protein Albumin 08/13/19 08/14/19 08/14/19 09:01 07:30 07:30 WBC 8.3 RBC 2.66 L Hgb 8.4 L Hct 24.5 L MCV 92.2 MCH 31.5 MCHC 34.2 RDW 12.6 Plt Count 207 MPV 7.8 Absolute Neuts (auto) 6.3 Neutrophils % 75.1 Lymphocytes % 13.0 Monocytes % 10.1 Eosinophils % 1.5 Basophils % 0.3 PT with INR 13.9 H INR 1.25 H PTT (Actin FS) Sodium 131 L Potassium 2.7 L* Chloride 95 L Carbon Dioxide 29 Anion Gap 7 L BUN 12.0 Creatinine 1.0 Est GFR (CKD-EPI)AfAm 68.95 Est GFR (CKD-EPI)NonAf 59.49 Random Glucose 135 H Lactic Acid Calcium 7.6 L Magnesium 1.9 Total Bilirubin 0.6 AST 42 H ALT 65 H Alkaline Phosphatase 105 Total Protein 5.4 L Albumin 2.5 L 08/14/19 07:30 WBC RBC Hgb Hct MCV MCH MCHC RDW Plt Count MPV Absolute Neuts (auto) Neutrophils % Lymphocytes % Monocytes % Eosinophils % Basophils % PT with INR INR PTT (Actin FS) Sodium 132 L Potassium 3.0 L Chloride 97 L Carbon Dioxide 29 Anion Gap 6 L BUN 10.0 Creatinine 0.8 Est GFR (CKD-EPI)AfAm 90.30 Est GFR (CKD-EPI)NonAf 77.91 Random Glucose 126 H Lactic Acid Calcium 7.8 L Magnesium 1.8 Total Bilirubin 0.5 AST 42 H ALT 64 H Alkaline Phosphatase 107 Total Protein 5.1 L Albumin 2.5 L Active Medications Generic Name Dose Route Start Last Admin Trade Name Freq PRN Reason Stop Dose Admin Acetaminophen 650 mg 08/13/19 08:11 08/13/19 22:56 Tylenol - PO 650 mg Q6H PRN Administration PAIN LEVEL 1-5 Albuterol/Ipratropium 1 amp 08/13/19 20:00 08/13/19 21:41 Duoneb - NEB 1 amp RQID [facility] Administration Ascorbic Acid 1,000 mg 08/08/19 10:00 08/13/19 10:06 Vitamin C - PO Not Given DAILY [facility] Cholecalciferol 1,000 unit 08/08/19 10:00 08/13/19 10:06 Vitamin D3 - PO Not Given DAILY [facility] Cyanocobalamin 3,000 mcg 08/08/19 10:00 08/13/19 10:06 Vitamin B12 - PO Not Given DAILY [facility] Docusate Sodium 100 mg 08/08/19 10:00 08/13/19 21:42 Colace - PO 100 mg BID MIRIAM Administration Famotidine 10 mg 08/10/19 14:00 08/13/19 21:44 Acid Tripe Washer PO 10 mg BID MIRIAM Administration Heparin Sodium (Porcine) 5,000 unit 08/09/19 13:13 08/13/19 21:42 Heparin - SQ 5,000 unit BID MIRIAM Administration Hydrochlorothiazide 25 mg 08/08/19 10:00 08/13/19 09:51 Hctz - PO Not Given DAILY [facility] Potassium Chloride 10 meq in 100 mls @ 100 mls/hr 08/14/19 08:45 Potassium Chloride 10 Meq Premix Ivpb - IVPB 08/14/19 11:44 Q60M MIRIAM Ketorolac Tromethamine 30 mg 08/12/19 09:35 08/12/19 12:33 Toradol Injection - IVPUSH 08/17/19 09:34 30 mg Q6H PRN Administration PAIN LEVEL 4 - 6 Levofloxacin 500 mg 08/09/19 16:30 08/14/19 06:16 Levaquin - PO 500 mg DAILY@0600 MIRIAM Administration Levothyroxine Sodium 100 mcg 08/08/19 07:00 08/14/19 06:16 Synthroid - PO 100 mcg ACBK [facility] Administration Losartan Potassium 100 mg 08/08/19 10:00 08/13/19 10:06 Cozaar - PO Not Given DAILY [facility] Non-Formulary Medication 100 mg 08/08/19 12:30 Chlorophyllin/Dickenson [Chlorophyll 20 Mg Tablet] PO DAILY [facility] Ondansetron HCl 4 mg 08/13/19 16:16 08/13/19 16:37 Zofran Odt - SL 4 mg Q6H PRN Administration NAUSEA AND/OR VOMITING Potassium Chloride 40 meq 08/14/19 08:43 K-Dur - PO 08/14/19 08:44 ONCE ONE ASSESSMENT/PLAN 64 year-old female with a PMH significant for HTN, HLD, hypothyroidism, s/p complex ventral hernia repair with mesh, and abdominoplasty on 08/07/19. r/o hypoxia --no documented episodes of hypoxia in past 24 hours; during day yesterday, during pre-post testing, patient walked 260 feet and maintained sats in 90s on room air; overnight, during sleep, maintained 98-100% on 2L NC --continue to hold --stop opioids, stop IV fluids --continue incentive spirometry q1h, chest PT BID --continuous pulse oximetry monitoring --tonight spot pulse ox checks q2h --pulmonary also following Hypokalemia --K 2.7, replete Hypertension Hyperlipidemia Hypothyroidism Dispo: We will continue to follow the patient. Thank you for this consultative opportunity.
[2019-08-14] MEDS ORDERED: POTASSIUM CHLORIDE TABS 20 MEQ TABLET.ER (FP) PO ONE (09:00)
[2019-08-14] MEDS: ALBUTEROL SO4 2.5/IPRATROPIUM 0.5 INH SOL 3 ML VIAL.NEB. NEB SCH ×2 (10:12→13:43)
[2019-08-14] MEDS: CYANOCOBALAMIN 1,000 MCG TABLET (FP) PO SCH (10:13)
[2019-08-14] MEDS: ASCORBIC ACID 500 MG TABLET (FP) PO SCH (10:13)
[2019-08-14] MEDS: DOCUSATE SODIUM 100 MG CAPSULE (FP) PO SCH (10:13)
[2019-08-14] MEDS: HYDROCHLOROTHIAZIDE 25 MG TABLET (FP) PO SCH ×2 (10:13→10:16)
[2019-08-14] MEDS: HEPARIN NA (PORCINE) 5,000 UNITS/ML 1ML VIAL SQ SCH (10:14)
[2019-08-14] MEDS: LOSARTAN POTASSIUM 50 MG TABLET (FP) PO SCH (10:14)
[2019-08-14] MEDS: CHOLECALCIFEROL (VIT D3) 1,000 UNIT (25 MCG) TABLET PO SCH (10:17)
[2019-08-14] MEDS: FAMOTIDINE 10 MG TABLET PO SCH (10:17)
[2019-08-14] MEDS ORDERED: PT OWN MED DRAWER 7, Y5N ONE (10:20)
[2019-08-14] MEDS: ACETAMINOPHEN 325 MG TABLET (FP) PO PRN (10:22)
[2019-08-14] MEDS: KCL 10 MEQ IVPB 10 MEQ/100 ML INFUS.BAG IVPB SCH ×3 (10:22→11:48)
[2019-08-14] MEDS: KETOROLAC TROMETHAMINE 30 MG/1 ML VIAL IVPUSH PRN (10:23)
[2019-08-14] MEDS ORDERED: POTASSIUM CHLORIDE ORAL LIQUID 20 MEQ/15 ML PO SCH (11:00)
--- NOTE | 2019-08-14 11:14 | PN ---
Progress Note (short form) - Note Progress Note: Patient evaluated this morning All dressings are CDI JED fluid remains high but purely serous in all JED's Appreciate pulmonary and medicine consults yesterday and once cleared from pulmonary standpoint and necessary arrangements made regarding oxygen she may be discharged with follow up on Monday.
--- NOTE | 2019-08-14 12:59 | PN ---
Progress Note (short form) - Note Progress Note: PULMONARY AWAKE/ALERT OOB TO CHAIR WANTS TO GO HOME VSS/AFEB SPO2 R/A 97% ANICTERIC MILD DIMINISHED BREATH SOUNDS BIBASILAR S1S2 S/P ABDOMINOPLASTY/HERNIA REPAIR W MESH NO EDEMA LABS/MEDS/NOTES/IMAGES REVIEWED IMP HYPOXEMIA SECONDARY TO BILATERAL LOWER LOBE ATELECTASIS RESOLVED S/P LAP WITH REPAIR CHRONIC INCARCERATED INCISIONAL VENTRAL HERNIA, PARTIAL OMENTECTOMY,PARTIAL RECTAL SHEATH BLOCK, ABDOMINOPLASTY WITH LIPOSUCTION HTN HYPOTHYROID ? CHRISTIANO ANEMIA HYPONATREMIA/HYPOKALEMIA PLAN INCENTIVE SPIROMETRY CHECK PRE/POST SPO2 AMB ON R/A INHALED BRONCHODILATORS REPLETE K NO OBJECTION TO DISCHARGE PLANNING Hoa BLOOD MD
[2019-08-14 13:46] VITALS: PULSE 84
--- NOTE | 2019-08-15 07:22 | DS ---
DATE OF ADMISSION: 08/08/2019 DATE OF DISCHARGE: 08/14/2019 ADMITTING DIAGNOSES: 1. Ventral hernia. 2. Obesity. 3. Atelectasis. 4. Underlying hypertension. BRIEF HISTORY: This is a 64-year-old female who was admitted to [facility] on August 08. She underwent repair of an incisional hernia utilizing mesh as well as component separation and myofascial release. Please reference Dr. Joshua Knutson's operative report from that time. She also underwent an abdominoplasty by Dr. Charlie Holland, with closure and drain placement. Postoperatively she required Ultram and oxycodone for pain. She developed hypoxic episodes, which were felt to be secondary to atelectasis. She had ultrasounds of her legs, which ruled out DVT. She had a CTA to rule out a pulmonary embolism. She was evaluated by Dr. Ventura of the pulmonary service and aggressive physical therapy was initiated, as well as bronchodilators. DISPOSITION: She is anticipated to be discharged home today, August 14. She is ambulating. She is voiding. She is having bowel movement, and she is tolerating diet. At the time of her discharge, her abdomen is soft. Her incision is clean. Her Cem-Osorio drains are serous. DISCHARGE MEDICATIONS: She will go home on her usual home medications. She will have a new prescription for Ultram, which she will take as needed for pain, as well as Levaquin, which she will take as long as her drains are in. FOLLOWUP: She will follow up with Dr. Holland regarding drain removal, and she will ultimately follow up with Dr. Knutson in approximately 2 to 3 weeks after the hernia repair. She needs to follow with a primary medical care physician and also with Dr. Ventura, who may wish to evaluate her for sleep apnea, as she had hypoxic episodes mostly at nighttime. Assuming that she is cleared from the Pulmonary Service today, she will be discharged. She also may receive a new prescription for bronchodilators at the discretion of the museum guide. DISCHARGE INSTRUCTIONS: She will keep her dressing dry and only sponge bathe. She will not lift. She is on a regular diet. DO LEEANNA ALEXANDRE/[id number]
== END 2019-08-14 14:30 | disposition home or self-care (01) | DRG 354 ==
LOC: FASU 05:42 → EDSTATUS 10:00 → FM/S 18:48 → FASU 18:48 → FM/S 08-08 12:42
PROVIDERS: ADMIT Surgery; ATTEND Surgery
PROC: 0WUF0JZ Supplement Abdominal Wall with Synthetic Substitute, Open Approach (ICD-10-PCS; 2019-08-07)
PROC: 0JD83ZZ Extraction of Abdomen Subcutaneous Tissue and Fascia, Percutaneous Approach (ICD-10-PCS; 2019-08-07)
PROC: 0WQF0ZZ Repair Abdominal Wall, Open Approach (ICD-10-PCS; principal; 2019-08-07 08:40)
PROC: 0DBU0ZZ Excision of Omentum, Open Approach (ICD-10-PCS; 2019-08-07 08:40)
DX: K43.6 Other and unspecified ventral hernia with obstruction, without gangrene (principal); J98.11 Atelectasis; E87.1 Hypo-osmolality and hyponatremia; R09.02 Hypoxemia; I10 Essential (primary) hypertension; E03.9 Hypothyroidism, unspecified; D64.9 Anemia, unspecified; E87.6 Hypokalemia; E78.5 Hyperlipidemia, unspecified; R00.0 Tachycardia, unspecified; D72.829 Elevated white blood cell count, unspecified
CPT/HCPCS: 36415; 36600; 71046-TC-FY; 71275-TC; 80053; 82803; 83605; 83735; 85025; 85027; 85610; 85730; 86850; 86900; 86901; 86922; 88302-TC; 88304-TC; 93970-TC; 94640; 94760; 94761; 97116-GP; 97162-GP; J0131; J1644; J7030; Q0162; Q9967